=== PATIENT | male | born 1980 | race Asian ===

== ENCOUNTER 2018-08-16 12:03 | Emergency (ER) | payer OTHER ==
[~2018-08-16] VITALS: Ht 167.6 cm; Wt 72.0 kg
[2018-08-16 12:18] VITALS: BP 120/73; PULSE 59; RESP 18; Ht 167.6 cm; Wt 72.0 kg
[2018-08-16] MEDS ORDERED: IBUPROFEN 800 MG TAB PO ONE (14:00)
[2018-08-16] MEDS ORDERED: IBUP800T48 PO (14:23)
--- NOTE | 2018-08-16 14:27 | ERD ---
ER Documentation Chief Complaint Chief Complaint LEFT KNEE PAIN D/T POP HEARD WHEN SQUATTING HPI 38-year-old male who presents emergency with left knee pain status post popping sensation when squatting. The patient was stretching his left knee during jujitsu when 2 days ago. He noted a popping sensation along the lateral aspect of the knee and since then has had mild pain to the knee. The pain is moderate, throbbing and sharp. Worse with movement and with stressing of the lateral collateral ligament. ROS All systems reviewed and are negative except as per history of present illness. Medications Home Meds Active Scripts Ibuprofen* (Motrin*) 800 Mg Tab, 800 MG PO Q6H PRN for PAIN AND OR ELEVATED TEMP, #30 TAB Prov:BELINDA JEAN BAPTISTE MD 08/16/18 PMhx/Soc History of Surgery: No Anesthesia Reaction: No Hx Neurological Disorder: No Hx Respiratory Disorders: No Hx Cardiac Disorders: No Hx Psychiatric Problems: No Hx Miscellaneous Medical Probl: No Hx Alcohol Use: No Hx Substance Use: No Hx Tobacco Use: No Smoking Status: Never smoker FmHx Family History: No diabetes Physical Exam Vitals Vital Signs Date Temp Pulse Resp B/P (MAP) Pulse Ox O2 O2 Flow FiO2 Time Delivery Rate 08/16/18 98.1 59 18 120/73 97 12:18 (89) Physical Exam General: Well developed, well nourished, no acute distress Head: Normocephalic, atraumatic. Eyes: EOM intact ENT: Moist mucous membranes Neck: Full ROM Respiratory: No respiratory distress Cardiovascular: Well perfused distally Abdominal: Nondistended : Deferred MSK: The patient has mild soft tissue tenderness along the lateral collateral ligament of the left knee. No significant ligamentous instability, no significant effusion. No bony abnormalities. Neurovascular intact distally. Neurologic: Alert and oriented, moving all extremities, normal speech, steady gait Skin: No rash Psych: Normal mood Results 24 hrs Current Medications Medications Dose Sig/Tamara Start Time Status Last (Trade) Ordered Route PRN Stop Time Admin Dose Reason Admin Ibuprofen 800 mg ONCE ONCE 08/16/18 DC 08/16/18 (Motrin) PO 14:00 13:54 08/16/18 14:01 Procedures/MDM EKG, MONITORS, & DIAGNOSTIC IMAGING: X-ray left knee: I reviewed and interpreted multiple views of the x-ray Bones: No evidence of acute fracture dislocation or subluxation Soft tissue: No evidence of foreign body PROCEDURES: Splint Application Note: Splint type: Joe wrap Extremity: Left knee Indication: Knee sprain The patient was consented at bedside prior to splint application and states understanding of risks, benefits, and alternatives. The patient was neurovascularly intact prior to and status post application of the splint. The patient tolerated the procedure well and there were no complications. MEDICAL DECISION MAKING: Patient with likely sprain of the left knee possibly involving the lateral collateral ligament. Low concern for fracture though x-ray imaging would be appropriate. ER COURSE: * X-ray imaging is negative. Patient given Motrin. At this point the patient's clinical exam is consistent with mild sprain of the left knee. Consider possible LCL injury. At this point rest ice elevation compression would be most appropriate. Outpatient follow-up with orthopedic shoe fitter as needed and MRI imaging as needed. Return precautions were discussed and understood. No evidence of septic arthritis. CONSULTATION: [None] DISPOSITION PLAN: The patient does not have an identifiable emergent medical condition that warrants inpatient hospitalization at this time. The patient is deemed safe for discharge with outpatient follow-up. We discussed follow up with the patient's primary care doctor within 24 to 48 hours as needed. We also discussed return to the emergency room for worsening symptoms or worsening condition. Outpatient referral: Orthopedic surgery Discharge Medications: Motrin Departure Diagnosis: Primary Impression: Left knee sprain Encounter type: initial encounter Involved ligament of knee: lateral collateral ligament Qualified Codes: S83.422A - Sprain of lateral collateral ligament of left knee, initial encounter Condition: Stable Patient Instructions: R.I.C.E., Knee Sprain: Collateral Ligaments Referrals: [facility] YOU HAVE RECEIVED A MEDICAL SCREENING EXAM AND THE RESULTS INDICATE THAT YOU DO NOT HAVE A CONDITION THAT REQUIRES URGENT TREATMENT IN THE EMERGENCY DEPARTMENT. FURTHER EVALUATION AND TREATMENT OF YOUR CONDITION CAN WAIT UNTIL YOU ARE SEEN IN YOUR DOCTORS OFFICE WITHIN THE NEXT 1-2 DAYS. IT IS YOUR RESPONSIBILITY TO MAKE AN APPOINTMENT FOR FOLOW-UP CARE. IF YOU HAVE A PRIMARY DOCTOR --you should call your primary doctor and schedule an appointment IF YOU DO NOT HAVE A PRIMARY DOCTOR YOU CAN CALL OUR PHYSICIAN REFERRAL HOTLINE AT IF YOU CAN NOT AFFORD TO SEE A PHYSICIAN YOU CAN CHOSE FROM THE FOLLOWING [facility] [address] [facility] [address] [facility] [address] [facility] [address] [facility] [address] [facility]. [facility] [address] [facility]. [facility] YOU HAVE RECEIVED A MEDICAL SCREENING EXAM AND THE RESULTS INDICATE THAT YOU DO NOT HAVE A CONDITION THAT REQUIRES URGENT TREATMENT IN THE EMERGENCY DEPARTMENT. FURTHER EVALUATION AND TREATMENT OF YOUR CONDITION CAN WAIT UNTIL YOU ARE SEEN IN YOUR DOCTORS OFFICE WITHIN THE NEXT 1-2 DAYS. IT IS YOUR RESPONSIBILITY TO MAKE AN APPOINTMENT FOR FOLOW-UP CARE. IF YOU HAVE A PRIMARY DOCTOR --you should call your primary doctor and schedule and appointment IF YOU DO NOT HAVE A PRIMARY DOCTOR YOU CAN CALL OUR PHYSICIAN REFERRAL HOTLINE AT . IF YOU CAN NOT AFFORD TO SEE A PHYSICIAN YOU CAN CHOSE FROM THE FOLLOWING [facility] INSTITUTIONS: [facility] [address] [place] [address] [facility] [address] [place] [address] [facility] [address] [place] [address] [facility] Care 7 a.m.- 11 p.m. Every Day of the Week NO APPOINTMENT OR AUTHORIZATION NEEDED [facility] Hours: Mon-Fri 9:00 AM - 5:00 PM Additional Instructions: Call your primary care doctor TOMORROW for an appointment during the next 1 WEEK.Tell the escrow secretary that you were referred from this facility.See the doctor sooner or return here if your condition worsens before your appointment time. BELINDA JEAN BAPTISTE MD Aug 16, 2018 14:27
== END 2018-08-16 14:34 | disposition home or self-care (01) ==
LOC: E/R 12:03
DX: S83.422A Sprain of lateral collateral ligament of left knee, initial encounter (principal); X58.XXXA Exposure to other specified factors, initial encounter; Y92.9 Unspecified place or not applicable
CPT/HCPCS: 73562